=== PATIENT | male | born 1985 | race Caucasian/White ===

== ENCOUNTER → 2024-05-13 10:42 | Outpatient (BNVA) | payer OTHER, SELFPAY | PROVIDERS: PCP Family Medicine; Visit Provider Internal Medicine Cardiovascular Disease | DX: R00.2 Palpitations (principal); I49.1 Atrial premature depolarization; I49.3 Ventricular premature depolarization | CPT/HCPCS: 93246 ==

== ENCOUNTER 2024-08-23 13:53 | Outpatient (CLI) | payer OTHER, SELFPAY ==
--- NOTE | 2024-08-23 13:59 | US_ITS ---
WS: [id number] TESTICULAR ULTRASOUND HISTORY: LUMP ON RIGHT TESTICLE COMPARISON: None available. TECHNIQUE: Real-time and color Doppler imaging utilized to perform a testicular ultrasound. Right testicle: 4.3 cm x 2.6 cm x 2.2 cm. Normal size and echogenicity. No mass or torsion. Normal color Doppler is present throughout. Systolic and diastolic velocities are both present. Small simple hydrocele. Right epididymis: RIGHT spermatocele measures 1.3 x 1.4 x 1.1 cm. No increased vascularity within the epididymis. Left testicle: 4.5 cm x 2.6 cm x 2.1 cm. Normal size and echogenicity. No mass or torsion. Normal color Doppler is present throughout. Systolic and diastolic velocities are both present. Small simple hydrocele. Left epididymis: Small spermatocele in the epididymal head measures 0.7 x 1.0 x 0.6 cm. US/US scrotum [id number] IMPRESSION: 1. No testicular mass or torsion. 2. Bilateral epididymal head spermatoceles.
== END 2024-08-23 13:54 | disposition home or self-care (01) ==
PROVIDERS: PCP Family Medicine; Visit Provider Family Medicine
DX: Z01.89 Encounter for other specified special examinations (principal); N43.42 Spermatocele of epididymis, multiple; N43.3 Hydrocele, unspecified
CPT/HCPCS: 76870

== ENCOUNTER 2024-12-31 07:42 | Outpatient (CLI) | payer OTHER, SELFPAY ==
--- NOTE | 2024-12-31 07:46 | US_ITS ---
WS: [id number] RIGHT UPPER QUADRANT ULTRASOUND HISTORY: ELEVATED LIVER ENZYMES COMPARISON: None available. Liver: 15.8 cm in length. Poorly visualized liver. Deep liver towards the diaphragm is not imaged. Very coarse echotexture and heterogeneity. No mass identified. Portal Vein: Normal hepatopetal flow with monophasic waveform. Gallbladder: Normally distended gallbladder with no stones or wall thickening. CBD: 0.5 cm Pancreas: Completely obscured. Right kidney: 12.0 cm in length. Normal size and echogenicity. No hydronephrosis or mass. Aorta and IVC: Limited. No ascites. US/US abdomen limited 57642 IMPRESSION: 1. Study is compromised by patient's body habitus. 2. Negative gallbladder. 3. Normal size liver with advanced hepatic steatosis. The entire liver is not well visualized.
== END 2024-12-31 07:43 | disposition home or self-care (01) ==
LOC: RAD 07:43
PROVIDERS: PCP Family Medicine; Visit Provider Family Medicine
DX: K76.0 Fatty (change of) liver, not elsewhere classified (principal)
CPT/HCPCS: 76705

== ENCOUNTER 2025-02-03 20:00 | Outpatient (CLI) | payer OTHER, SELFPAY | END 2025-02-03 20:01 | disposition home or self-care (01) | LOC: SLEEP 02-04 00:24 | PROVIDERS: PCP Family Medicine; Visit Provider Internal Medicine Pulmonary Disease | DX: G47.33 Obstructive sleep apnea (adult) (pediatric) (principal) | CPT/HCPCS: 95810 ==

== ENCOUNTER 2025-04-13 17:06 | Inpatient (IN) | payer OTHER, SELFPAY ==
--- OUTSIDE RECORDS SUMMARY | 2025-03-04 09:05 | XMS_ITS ---
Author Organization [facility], [facility] Address [address] [place] [address] Care Team Providers Care Risk Control Analyst Name Role Phone Max Shelton Primary Care Provider Unavailab yanira SCOTT TOÑA Unavailable [phone] CHIDI FOSTER Unavailable [phone] REASON FOR VISIT 4-5 mo w/ reexamination - testicular cyst Encounters Encounter Location Date Provider Diagnosis [facility], [facility] [address] [place] [address] 03/04/2025 CHIDI FOSTER Testicular cyst N44. 2 ; Right testicular pain N50.811 and Anejaculation N53.19 Assessments Encounter Date Diagnosis (ICD Code) Assessment Notes Treatment Notes Treatment Clinical Notes Section Notes 03/04/2025 Testicular cyst (ICD-10 - N44.2) 03/04/2025 Right testicular pain (ICD-10 - N50.811) 03/04/2025 Anejaculation (ICD-10 - N53.19) Plan Of Treatment No Information Progress Notes * Omar CAIN WDOB:1985 (39 yo F)Acc No.[id number]:03/04/2025 Progress Notes Patient: Omar FLOWERS Provider: Suzanne Foster MD :1985 A ge:39 Y S ex:Female Date:03/04/2025 Address:[address] [place], [place] [id number] Pcp:Max Shelton Subjective: * Chief Complaints: * 1 . 4-5 mo w/ reexamination - testicular cyst. * HPI: M igrated HPI: 39 year old male, currently chews oral tobacco, that is here to establish care due to chronic testicular pain at times with a lump to R testicle . RAIZA was ordered and completed on 08/23/24 resulting with bilateral epididymal head spermatoceles. He reports has been aware of a cyst to the R since a young age and what sounds like varicocelectomy at age 25 at O[facility]. He is hard to gain history from exactly as he is a poor historian. He has a significant psychiatric history. He reports since was taking other schizophrenic medications, he has since been unable to fully ejaculate. Here today for 4m f/u with reexamination. * Medical History: Objective: * Vitals: Assessment: * Assessment: 1. T esticular cyst - N44.2 (Primary) 2 . R ight testicular pain - N50.811? 3. A nejaculation - N53.19 Plan: * Treatment: * Billing Information: * Visit Code: * Procedure Codes: * Electronic signature of MARY FOSTER MD on 04/14/2025 at 02:31 PM CDT Sign off status: Pending * Provider: Suzanne Foster MD Date: 0 03/04/2025 Generated for Roxann ballesteros/Valentin/Paulitting on: 1 02:31 PM CDT History and Physical Notes * HPI (History of Present Illness) Category Sub-Category Detail Notes Category Not es Migrated HPI 39 year old male, currently chews oral tobacco, that is here to establish care due to chronic testicular pain at times with a lump to R testicle . RAIZA was ordered and completed on 08/23/24 resulting with bilateral epididymal head spermatoceles. He reports has been aware of a cyst to the R since a young age and what sounds like varicocelectomy at age 25 at OSH. He is hard to gain history from exactly as he is a poor historian. He has a significant psychiatric history. He reports since was taking other schizophrenic medications, he has since been unable to fully ejaculate. Here today for 4m f/u with reexamination
--- OUTSIDE RECORDS SUMMARY | 2025-03-04 09:05 | XMS_ITS ---
Author Organization [facility], [facility] Address [address] [place] [address] Care Team Providers Care Street Commissioner Name Role Phone Max Shelton Primary Care Provider Unavailab yanira SCOTT TOÑA Unavailable [phone] CHIDI FOSTER Unavailable [phone] REASON FOR VISIT 4-5 mo w/ reexamination - testicular cyst Encounters Encounter Location Date Provider Diagnosis [facility], [facility] [address] [place] [address] 03/04/2025 CHIDI FOSTER Testicular cyst N44. 2 ; Right testicular pain N50.811 and Anejaculation N53.19 Assessments Encounter Date Diagnosis (ICD Code) Assessment Notes Treatment Notes Treatment Clinical Notes Section Notes 03/04/2025 Testicular cyst (ICD-10 - N44.2) 03/04/2025 Right testicular pain (ICD-10 - N50.811) 03/04/2025 Anejaculation (ICD-10 - N53.19) Plan Of Treatment No Information Progress Notes * Omar CAIN WDOB:1985 (39 yo F)Acc No.[id number]:03/04/2025 Progress Notes Patient: Omar FLOWERS Provider: Suzanne Foster MD :1985 A ge:39 Y S ex:Female Date:03/04/2025 Address:[address] [place], [place] [phone] Pcp:Max Shelton Subjective: * Chief Complaints: * [...] Electronic signature of MARY FOSTER MD on 04/13/2025 at 05:20 PM CDT Sign off status: Pending * Provider: Suzanne Foster MD Date: 0 03/04/2025 Generated for Roxann ballesteros/Valentin/Paulitting on: 1 05:20 PM CDT History and Physical Notes * [...]
[2025-04-13 17:08] VITALS: BP 134/94; PULSE 106; TEMP 36.9; O2SAT 97; BMI 36.1
--- OUTSIDE RECORDS SUMMARY | 2025-04-13 17:21 | XMS_ITS | Patient Health Record ---
Author Organization [facility], [facility] Address [address] [place] [address] Care Team Providers Care Franchise Consultant Name Role Phone Max Shelton Primary Care Provider Unavailab yanira KEATINGTOÑA PASCAL Unavailable [phone] MICAH GAMBOA Unavailable [phone] Derrick Micah Unavailable [phone] Allergies No Known Allergies Results Component Value Reference Range Notes Urinalysis, Routine Reviewed date:10/03/2024 02:27:48 PM Interpretation: Performing Lab: Notes/Report: Urine-Color yellow Appearance clear Glucose - Bilirubin 1+ Ketones - Specific [place] 1.025 Occult Blood - pH 6.0 Urine Protein - Urobilinogen,Semi-Qn - Nitrite, Urine - WBC Esterase - Reason For Referral No Information Medications Medication SIG (Take, Route, Frequency, Duration) Notes Start Date End Date Status diphenhydrAMINE HCl 50 MG 1 capsule at b edtime as needed Orally Once a day Active Melatonin 3 MG 1 tablet at bedtime as needed Orally Once a day Active hydrOXYzine Pamoate 50 MG 1 capsule at b edtime as needed Orally three times a day Active Social History Tobacco Use: Social History Observation Description Date Details (start date - stop date) Former Smoker NA - NA Tobacco Control (Standard) Question Answer Notes Tobacco use: Former smoker How long has it been since you last smoked? 1-5 years AUDIT-C (Standard) Question Answer Notes Did you have a drink containing alcohol in the p ast year? No Points 0 Interpretation Negative Section Notes: former ETOH - ages 18 - 38 current oral tobacco since age 18 - 2 cans per week Problems Problem Type SNOMED Code ICD Code Onset Dates Problem Status W/U Status Risk Notes Problem Anejaculation ([id number]) Anejaculation (N53.19) Active confirmed Vital Signs Heart Rate 66 /min 10/03/2024 Height-cm 185.42 cm 10/03/2024 Blood pressure diastolic 89 mm Hg 10/03/2024 Weight-kg 122.47 kg 10/03/2024 Height 73 in 10/03/2024 Blood pressure systolic 117 mm Hg 10/03/2024 Weight 270 lbs 10/03/2024 BMI 35.62 kg/m2 10/03/2024 Encounters Encounter Location Date Provider Diagnosis [email or web address] [address] [place] [address] 10/03/2024 Micah Meza Testicular cyst N44. 2 ; Right testicular pain N50.811 and Anejaculation N53.19 [email or web address] [address] [place] [address] 09/18/2024 TOÑA SCOTT Assessments Encounter Date Diagnosis (ICD Code) Assessment Notes Treatment Notes Treatment Clinical Notes Section Notes 10/03/2024 Right testicular pain (ICD-10 - N50.811) I reviewed RAIZA images independently, as well as radiology report. In the exam room I discussed with the patient and shown imaging to the patient that there is consistent findings with bilateral spermatoceles that has been causing him intermittent pains. Exam is overal reassuring and discussed continuing monitoring for now.. I have recommended and discussed methods for symptomatic support including scrotal support, NSAIDs, and warm sitz baths. He recently stopped previously a shizophrenic medication, and would like to see if ejaculatory function returns in a few months since stopping. Patient will safely return care in 4-6 months for symptom reassessment and reexamination. If continues to be bothersome/inte rmittent testicular pains, he would like to discuss with MD on possible surgical options. For now, and through shared decision making we are in agreement with no further workup or intervention at this time with care plan, aside from what was mentioned. Patient has no other voiced concerns or questions. Patient satisfied with plan. 10/03/2024 Testicular cyst (ICD-10 - N44.2) I reviewed RAIZA images independently, as well as radiology report. In the exam room I discussed with the patient and shown imaging to the patient that there is consistent findings with bilateral spermatoceles that has been causing him intermittent pains. Exam is overal reassuring and discussed continuing monitoring for now.. I have recommended and discussed methods for symptomatic support including scrotal support, NSAIDs, and warm sitz baths. He recently stopped previously a shizophrenic medication, and would like to see if ejaculatory function returns in a few months since stopping. Patient will safely return care in 4-6 months for symptom reassessment and reexamination. If continues to be bothersome/inte rmittent testicular pains, he would like to discuss with MD on possible surgical options. For now, and through shared decision making we are in agreement with no further workup or intervention at this time with care plan, aside from what was mentioned. Patient has no other voiced concerns or questions. Patient satisfied with plan. 10/03/2024 Anejaculation (ICD-10 - N53.19) I reviewed RAIZA images independently, as well as radiology report. In the exam room I discussed with the patient and shown imaging to the patient that there is consistent findings with bilateral spermatoceles that has been causing him intermittent pains. Exam is overal reassuring and discussed continuing monitoring for now.. I have recommended and discussed methods for symptomatic support including scrotal support, NSAIDs, and warm sitz baths. He recently stopped previously a shizophrenic medication, and would like to see if ejaculatory function returns in a few months since stopping. Patient will safely return care in 4-6 months for symptom reassessment and reexamination. If continues to be bothersome/inte rmittent testicular pains, he would like to discuss with MD on possible surgical options. For now, and through shared decision making we are in agreement with no further workup or intervention at this time with care plan, aside from what was mentioned. Patient has no other voiced concerns or questions. Patient satisfied with plan. Plan Of Treatment No Information Insurance Providers Payer Name Payer Address Payer Phone Subscriber Number Group Number Insured Name Patient Relationship to Insured Coverage Start Date Coverage End Date [employer] [address] [place] [id number] Omar Cain Self - patient is the insured Medical (General) History Medical History History ICD Code anxiety erectile dysfunction testicular pain schizophrenia Surgical History Surgery Date(Month/Year) jaw surgery varicocele sx Hospitalization History Reason Date(Month/Year) surgeries schizophrenia ( off and on
[2025-04-13 17:37] LABS: Hematocrit 48.3 % (37-53); Hemoglobin 16.60 g/dL (11.27-16.99); Mean Corpuscular HGB Conc 34.4 g/dL (30-55); Mean Corpuscular Hemoglobin 30.1 pg (27-33); Mean Corpuscular Volume 87.7 fl (82-101); Nucleated Red Blood Cells % 0 %; Platelet Count 347 10^3/cmm (157-399); Red Blood Count 5.51 10^6/uL (3.85-5.65); White Blood Count 12.29 10^3/uL (3.29-11.43)
[2025-04-13 17:46] LABS: PCP Screen Urine Negative (Negative)
--- NOTE | 2025-04-13 17:50 | ED.C_ITS ---
Documented by User: [email or web address] Dimas 04/13/25 17:53 HPI - Psych 2 General: Chief Complaint: Psychiatric Symptoms Stated Complaint: 96 Time Seen by Provider: 04/13/25 17:07 Source: patient and other (Friend) Mode of arrival: ambulatory Limitations: no limitations History of Present Illness: Patient is a 39-year-old male who presents to the emergency department for mental health evaluation. He was dropped off by a friend. Initially spoke to the patient, who tells me he is unsure why he is here. He states that he has been seeing and talking to [facility] for the last few years, and this is not unusual for him. He states that he used to take psychiatric meds for schizophrenia, but has been off of them for some time. He also reports that he was medically discharged from the for mental purposes. He is unable to tell me where he currently lives, and overall does not provide much history. He does deny that he is having any suicidal ideations or homicidal ideations. I then spoke to patient's friend, who dropped him off. She tells me that the patient has been living with her brother for the last few years. She also notes that recently, her brother a few weeks ago and since then the patient has stopped taking his medications. She tells me that the patient did not take off his tuxedo for a couple of weeks, and has been witnessed talking to shashank. Today, the patient was supposed to move out of the house he had been staying with her brother and, and she went to pick him up and asking him where he was going to go, the patient reported to her that Yue Vaughn is going to pick me up tonight and take me to [place]. He then told her that if she is not there to pick him up that he is going to walk to [place] himself. She also confirms to me that prior to the of her brother, he had been acting himself with no hallucinations of any kind. She also denies that he had been demonstrating any suicidal or homicidal ideations. complaint: other (Hallucinations) Onset (ago): week(s) Duration: constant and getting worse History of same: Yes Context: not taking psychiatric medications and significant life stressor Associated symptoms: Reports auditory hallucinations and visual hallucinations; Deny homicidal ideation or suicidal ideation Related Data Allergies Allergy/AdvReac Type Severity Reaction Status Date / Time No Known Allergies Allergy Verified 04/13/25 17:16 Review of Systems 2 General: Reports: 10 or more systems reviewed and unremarkable except in HPI and below Const: Denies: fever(s), chills or fatigue Eyes: Denies: change in vision ENMT: Denies: throat pain, ear or mastoid pain or nasal discharge Card: Denies: chest pain, palpitations, swelling of feet/ankles or lightheadedness Resp: Denies: dyspnea, productive cough or wheezing GI: Denies: abdominal pain, nausea, vomiting, diarrhea or constipation : Denies: flank pain, difficulty urinating, dysuria or urinary frequency Musc: Denies: neck pain, back pain or joint pain Skin/Breast: Denies: rash Neuro: Denies: headache(s), numbness in extremities or weakness in extremities Psych: Reports: visual hallucinations and auditory hallucinations; Denies: suicidal ideation or homicidal ideation Physical Exam 2 Const: COMMON NORMALS: no acute distress, patient oriented x3 and no limitations GENERAL APPEARANCE: cooperative, comfortable and well developed ORIENTATION/CONSCIOUSNESS: Yes awake, Yes oriented to person, Yes oriented to place and Yes oriented to time HENMT: COMMON NORMALS: normocephalic, atraumatic and hearing grossly normal bilaterally HEAD & SCALP: normocephalic and atraumatic Eye: COMMON NORMALS: Equal, round and reactive pupils present, EOMs intact bilaterally and conjunctivae normal CONJUNCTIVA: Yes conjunctivae normal P UPIL: Yes Equal, round and reactive pupils present Neck/C-Spine: COMMON NORMALS: full ROM, supple and no JVD Resp: COMMON NORMALS: normal respiratory effort, No retractions, No use of accessory muscles and clear to auscultation bilaterally AUSCULTATION: clear to auscultation bilaterally Cardio: COMMON NORMALS: no JVD, regular rate, regular rhythm, No clicks present (Cardio), No murmurs present (Cardio) and No rub (Cardio) RATE: r egular rate RHYTHM: regular rhythm Extremity: COMMON NORMALS: normal to inspection, full ROM and capillary refill normal Neuro: COMMON NORMALS: patient oriented x3, moves all extremities, no focal motor deficits and no sensory deficits noted SENSORIUM/ORIENTATION: Yes oriented to person, Yes oriented to place and Yes oriented to time Psych: COMMON NORMALS: mental status grossly normal, Normal thought process present and speech normal APPEARANCE: Yes grossly normal ATTITUDE: Yes calm ACTIVITY/MOTOR BEHAVIOR: Yes appropriate eye contact SPEECH: Yes normal speech MOOD & AFFECT: Yes euthymic mood THOUGHT PROCESS: Normal thought process present THOUGHT CONTENT: No Suicidality present, No Homicidality present and Yes Hallucination(s) present auditory and visual Skin: COMMON NORMALS: no rashes or lesions noted GENERAL SKIN EXAM: no rashes or lesions noted Course 2 Vital Signs: Vital signs: Vital Signs Temperature 98.5 F 04/13/25 17:08 Pulse Rate 106 H 04/13/25 17:08 Blood Pressure 134/94 04/13/25 17:08 Pulse Oximetry 97 04/13/25 17:08 Oxygen Delivery Me thod Room Air 04/13/25 17:08 MDM - Psych Medical Decision Making Patient presents to the emergency department for mental health evaluation, dropped off by a friend. I gathered history from the patient and the friend, and deemed that the patient is demonstrating signs of acute psychosis, brought on by of someone close to the patient as well as him not taking his psychiatric medications. He is cleared medically, and I spoke to Dr. Harris, psychiatrist, who agrees to accept the patient to the neuropsychiatric unit. Currently there are no beds, he will be moved up upon discharges in the morning. Spoke to Dr. Cerrato about this patient who will put in admit orders. Lab Data 04/13/25 17:25 04/13/25 17:25 Laboratory Results WBC 12.29 10^3/uL (3.29-11.43) H 04/13/25 17: RBC 5.51 10^6/uL (3.85-5.65) 04/13/25 17: Hgb 16.60 g/dL (11.27-16.99) 04/13/25 17: Hct 48.3 % (37-53) 04/13/25 17: MCV 87.7 fl (82-101) 04/13/25 17: MCH 30.1 pg (27-33) 04/13/25 17: MCHC 34.4 g/dL (30-55) 04/13/25: RDW 12.1 % (12.1-15.1) 04/13/25 17:25 Plt Count 347 10^3/cmm (157-399) 04/13/25 17:25 MPV 9.8 fL (7.4-10.4) 04/13/25 17:25 Neut % (Auto) 69.9 % 04/13/25 17:25 Lymph % (Auto) 23.1 % 04/13/25 17:25 [place] % (Auto) 5.5 % 04/13/25 17:25 Eos % (Auto) 0.5 % 04/13/25 17:25 Baso % (Auto) 0.4 % 04/13/25 17:25 Neut # (Auto) 8.59 10^3/uL (1.8-7.7) H 04/13/25 17: Lymph # (Auto) 2.8 10^3/uL (0.8-4.8) 04/13/25 17:25 [place] # (Auto) 0.7 10^3/uL (0.2-0.9) 04/13/25 17:25 Eos # (Auto) 0.1 10^3/uL (0.0-0.8) 04/13/25 17:25 Baso # (Auto) 0.1 10^3/uL (0.0-0.1) 04/13/25 17: Nucleated RBC % (auto) 0 % 04/13/25: Nucleated RBCs # 0.0 /100WBC 04/13/25 17:25 Sodium 141 mmol/L (136-145) 04/13/25 17:25 Potassium 3.6 mmol/L (3.5-5.1) 04/13/25 17:25 Chloride 104 mmol/L (98-107) 04/13/25 17:25 Carbon Dioxide 22 mmol/L (22-29) 04/13/25 17:25 Anion Gap 18.6 (5-19) 04/13/25 17:25 BUN 6 mg/dL (6-20) 04/13/25 17:25 Creatinine 0.8 mg/dL (0.7-1.2) 04/13/25 17:25 GFR Calculation 107.6 mL/min (90-130) 04/13/25 17:25 Glucose 101 mg/dL (65-115) 04/13/25 17:25 Calculated Osmolality 290 mOsm/kg (285-295) 04/13/25 17:25 Calcium 9.3 mg/dL (8.5-10.5) 04/13/25 17:25 Total Bilirubin 0.5 mg/dL (0.15-1.2) 04/13/25 17:25 AST 33 U/L (0-40) 04/13/25 17:25 ALT 75 U/L (0-41) H 04/13/25 17:25 Alkaline Phosphatase 132 U/L (40-130) H 04/13/25 17:25 Total Protein 7.6 g/dL (6.6-8.7) 04/13/25 17:25 Albumin 4.6 g/dL (3.5-5.2) 04/13/25 17:25 Globulin 3.0 g/dL (1.3-4.6) 04/13/25 17:25 Salicylates < 0.3 mg/dL (3-10) L 04/13/25 17:25 Urine Opiates Screen Negative ng/mL (Negative) 04/13/25 17:31 Acetaminophen < 5.0 ug/mL (10-30) L 04/13/25 17:25 Ur Barbiturates Screen Negative ng/mL (Negative) 04/13/25 17:31 Ur Phencyclidine Scrn Negative ng/mL (Negative) 04/13/25 17:31 Ur Amphetamines Screen Negative ng/mL (Negative) 04/13/25 17:31 U Benzodiazepines Scrn Negative ng/mL (Negative) 04/13/25 17:31 Urine Cocaine Screen Negative ng/mL (Negative) 04/13/25 17:31 U Marijuana (THC) Screen Negative ng/mL (Negative) 04/13/25 17:31 Ethyl Alcohol < 10 mg/dL (0-10) 04/13/25 17:25 No radiology studies performed this visit Discharge Plan Discharge Patient Disposition: Admitted As Inpatient Clinical Impression: Acute psychosis Condition: Stable Coding Level of Care Code ED Chemical Equipment Repairer for Jaquelin Fwd Documented by User: Beto Cerrato DO 04/13/25 18:07 HPI - Psych 2 General: Chief Complaint: Psychiatric Symptoms Stated Complaint: 96 Time Seen by Provider: 04/13/25 17:07 Related Data Allergies Allergy/AdvReac Type Severity Reaction Status Date / Time No Known Allergies Allergy Verified 04/13/25 17:16 Course 2 Vital Signs: Vital signs: Vital Signs Temperature 98.5 F 04/13/25 17:08 Pulse Rate 106 H 04/13/25 17:08 Blood Pressure 134/94 04/13/25 17:08 Pulse Oximetry 97 04/13/25 17:08 Oxygen Delivery Me thod Room Air 04/13/25 17:08 MDM - Psych Medical Decision Making Patient presents to the emergency department for mental health evaluation, dropped off by a friend. I gathered history from the patient and the friend, and deemed that the patient is demonstrating signs of acute psychosis, brought on by of someone close to the patient as well as him not taking his psychiatric medications. He is cleared medically, and I spoke to Dr. Harris, psychiatrist, who agrees to accept the patient to the neuropsychiatric unit. Currently there are no beds, he will be moved up upon discharges in the morning. Spoke to Dr. Cerrato about this patient who will put in admit orders. Chart reviewed and patient discussed with midlevel. Agree with assessment and plan. Lab Data 04/13/25 17:25 04/13/25 17:25 Laboratory Results WBC 12.29 10^3/uL (3.29-11.43) H 04/13/25 17: RBC 5.51 10^6/uL (3.85-5.65) 04/13/25 17: Hgb 16.60 g/dL (11.27-16.99) 04/13/25 17: Hct 48.3 % (37-53) 04/13/25 17: MCV 87.7 fl (82-101) 04/13/25 17: MCH 30.1 pg (27-33) 04/13/25 17: MCHC 34.4 g/dL (30-55) 04/13/25: RDW 12.1 % (12.1-15.1) 04/13/25 17:25 Plt Count 347 10^3/cmm (157-399) 04/13/25 17:25 MPV 9.8 fL (7.4-10.4) 04/13/25 17:25 Neut % (Auto) 69.9 % 04/13/25 17:25 Lymph % (Auto) 23.1 % 04/13/25 17:25 [place] % (Auto) 5.5 % 04/13/25 17:25 Eos % (Auto) 0.5 % 04/13/25 17:25 Baso % (Auto) 0.4 % 04/13/25 17: Neut # (Auto) 8.59 10^3/uL (1.8-7.7) H 04/13/25: Lymph # (Auto) 2.8 10^3/uL (0.8-4.8) 04/13/25 17:25 [place] # (Auto) 0.7 10^3/uL (0.2-0.9) 04/13/25 17:25 Eos # (Auto) 0.1 10^3/uL (0.0-0.8) 04/13/25 17:25 Baso # (Auto) 0.1 10^3/uL (0.0-0.1) 04/13/25 17: Nucleated RBC % (auto) 0 % 04/13/25: Nucleated RBCs # 0.0 /100WBC 04/13/25 17:25 Sodium 141 mmol/L (136-145) 04/13/25 17:25 Potassium 3.6 mmol/L (3.5-5.1) 04/13/25 17:25 Chloride 104 mmol/L (98-107) 04/13/25 17:25 Carbon Dioxide 22 mmol/L (22-29) 04/13/25 17:25 Anion Gap 18.6 (5-19) 04/13/25 17:25 BUN 6 mg/dL (6-20) 04/13/25 17:25 Creatinine 0.8 mg/dL (0.7-1.2) 04/13/25 17:25 GFR Calculation 107.6 mL/min (90-130) 04/13/25 17:25 Glucose 101 mg/dL (65-115) 04/13/25 17:25 Calculated Osmolality 290 mOsm/kg (285-295) 04/13/25 17:25 Calcium 9.3 mg/dL (8.5-10.5) 04/13/25 17:25 Total Bilirubin 0.5 mg/dL (0.15-1.2) 04/13/25 17:25 AST 33 U/L (0-40) 04/13/25 17:25 ALT 75 U/L (0-41) H 04/13/25 17:25 Alkaline Phosphatase 132 U/L (40-130) H 04/13/25 17:25 Total Protein 7.6 g/dL (6.6-8.7) 04/13/25 17:25 Albumin 4.6 g/dL (3.5-5.2) 04/13/25 17:25 Globulin 3.0 g/dL (1.3-4.6) 04/13/25 17:25 Salicylates < 0.3 mg/dL (3-10) L 04/13/25 17:25 Urine Opiates Screen Negative ng/mL (Negative) 04/13/25 17:31 Acetaminophen < 5.0 ug/mL (10-30) L 04/13/25 17:25 Ur Barbiturates Screen Negative ng/mL (Negative) 04/13/25 17:31 Ur Phencyclidine Scrn Negative ng/mL (Negative) 04/13/25 17:31 Ur Amphetamines Screen Negative ng/mL (Negative) 04/13/25 17:31 U Benzodiazepines Scrn Negative ng/mL (Negative) 04/13/25 17:31 Urine Cocaine Screen Negative ng/mL (Negative) 04/13/25 17:31 U Marijuana (THC) Screen Negative ng/mL (Negative) 04/13/25 17:31 Ethyl Alcohol < 10 mg/dL (0-10) 04/13/25 17:25 Discharge Plan Discharge Patient Disposition: Admitted As Inpatient Clinical Impression: Acute psychosis Condition: Stable Coding Level of Care Code ED Chemical Equipment Repairer for Jaquelin Pagan
[2025-04-13 18:00] LABS: Alanine Aminotransferase 75 U/L (0-41); Albumin Level 4.6 g/dL (3.5-5.2); Alkaline Phosphatase 132 U/L (40-130); Anion Gap 18.6 (5-19); Aspartate Amino Transferase 33 U/L (0-40); Blood Urea Nitrogen 6 mg/dL (6-20); Calcium 9.3 mg/dL (8.5-10.5); Carbon Dioxide 22 mmol/L (22-29); Chloride 104 mmol/L (98-107); Creatinine Clr Calc Pharmacy 171.2329; Globulin 3.0 g/dL (1.3-4.6); Glucose 101 mg/dL (65-115); Osmolality Calculated 290 mOsm/kg (285-295); Potassium 3.6 mmol/L (3.5-5.1); Sodium 141 mmol/L (136-145); Total Protein 7.6 g/dL (6.6-8.7)
[2025-04-13 18:03] LABS: Acetaminophen < 5.0 ug/mL (10-30); Alcohol Level < 10 mg/dL (0-10); Salicylate < 0.3 mg/dL (3-10)
[2025-04-13 22:00] VITALS: BP 128/89; PULSE 93; O2SAT 97
[2025-04-14 05:29] VITALS: BP 120/77; PULSE 74; O2SAT 96
--- NOTE | 2025-04-14 07:33 | PC.NURSE ---
went in to speak/introduce self to the patient. patient was found lying in the bed with eyes open. Patient was pleasant and denies any needs at this time
[2025-04-14 14:10] VITALS: BP 130/89; PULSE 95; O2SAT 99
--- OUTSIDE RECORDS SUMMARY | 2025-04-14 14:32 | XMS_ITS | Patient Health Record ---
Author Organization [facility], [facility] Address [address] [place] [address] Care Team Providers Care Software Packager Name Role Phone Max Shelton Primary Care Provider Unavailab yanira KEATINGTOÑA PASCAL Unavailable [phone] MICAH GAMBOA Unavailable [phone] Derrick Micah Unavailable [phone] Allergies No Known Allergies Results Component Value Reference Range Notes Urinalysis, Routine Reviewed date:10/03/2024 02:27:48 PM Interpretation: Performing Lab: Notes/Report: Urine-Color yellow Appearance clear Glucose - Bilirubin 1+ Ketones - Specific [place] 1.025 Occult Blood - pH 6.0 Urine [...] Status W/U Status Risk Notes Problem Anejaculation ([id number]) Anejaculation (N53.19) Active confirmed Vital Signs Heart Rate 66 /min 10/03/2024 Blood pressure diastolic 89 mm Hg 10/03/2024 Height-cm 185.42 cm 10/03/2024 Weight-kg 122.47 kg 10/03/2024 Height 73 in 10/03/2024 Blood pressure systolic 117 mm Hg 10/03/2024 Weight 270 lbs 10/03/2024 BMI 35.62 kg/m2 10/03/2024 Encounters Encounter Location Date Provider Diagnosis [facility] [address] [place] [address] 10/03/2024 Micah Meza Testicular cyst 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 2 ; Right testicular pain N50.811 and Anejaculation N53.19 [facility] [employer] [address] [place] [address] 09/18/2024 TOÑA SCOTT Assessments Encounter Date Diagnosis [...] Coverage End Date [employer] [address] [place] [id number] Omar Cain Self - patient is the insured Medical (General) History Medical History History ICD Code anxiety erectile dysfunction testicular pain schizophrenia Surgical History Surgery Date(Month/Year) jaw surgery varicocele sx Hospitalization History Reason Date(Month/Year) surgeries schizophrenia ( off and on
[2025-04-14 14:39] VITALS: BP 144/100; PULSE 91; RESP 16; TEMP 37.6; O2SAT 98
[2025-04-14 19:39] VITALS: BP 122/84; PULSE 94; RESP 18; TEMP 37.1; O2SAT 98
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
[2025-04-15 06:00] VITALS: BP 118/80; PULSE 70; RESP 18; TEMP 37; O2SAT 96
[2025-04-15 13:54] VITALS: BP 114/78; PULSE 93; RESP 16; TEMP 36.9; O2SAT 98
[2025-04-15 20:13] VITALS: BP 125/89; PULSE 98; RESP 17; TEMP 36.9; O2SAT 100
[2025-04-16 06:00] VITALS: BP 131/82; PULSE 86; RESP 18; TEMP 37.1; O2SAT 99
[2025-04-16] MEDS: paliperidone ER 6 mg Tablet PO (09:12)
--- NOTE | 2025-04-16 13:07 | P.NPUPN_ITS ---
Subjective NPU 2 Subjective: Patient presented today reporting that things are going all right. He reports that there have been no problems with the medication at this point and he denied any side effects to the medication. He continued to have the same reports of what appeared to be very delusional framework per staff reports and direct conversation. Mental Status Exam 2 MSE Comments: This is an obese white male in hospital scrubs with limited grooming and eye contact. No abnormal movements except for psychomotor retardation. Mostly cooperative with exam in mild to moderate distress. Speech was slightly decreased rate and volume. Mood described as okay affect odd. Thought process linear. Thought content: Patient denied suicidal or homicidal ideation, there were no delusions reported but significant delusions were noted of grandiose, persecutory and paranoid quality, he did not appear to be attending to internal stimuli and denied auditory or visual hallucinations but thinks he described appear to be hallucinatory. Attention and concentration were intact and memory appeared unreliable but none were formally tested. He is alert and oriented times person and place. Insight, judgment and impulse control are impaired. Vitals/I&O/Wt Last Vital Signs Temp 98.7 F 04/16/25 06:00 Pulse 86 04/16/25 06:00 Resp 18 04/16/25 06:00 BP 131/82 04/16/25 06:00 Pulse Ox 99 04/16/25 06:00 O2 Del Method Room Air 04/16/25 06:00 Data NPU 04/13/25 17:25 04/13/25 17:25 A&P Assessment and plan 1. Acute psychosis: 2. History of schizophrenia: Plan: This is a 39-year-old white male with a long history of mental health challenges and psychosocial issues like homelessness who presents after the of a close supporter and the medical incapacitation of another which left him living in the home alone of the person who is and now is again homeless in his life as the home has been sold. Patient has not been on medication and is somewhat resistant to the belief that he has any mental illness. There has been previous treatment and a long history of psychosis. 1. Offering Invega 6 mg p.o. daily. Plan to initiate long-acting injectable. 2. Continue every 15 minute checks for safety. 3. Encourage individual, group and milieu therapy. 4. Obtain collateral information. 5. Observe against the backdrop of the 96-hour hold. PDMP PDMP Reviewed: Not Reviewed Involuntary Hold Information 2 Hold Status: Date/Time Hold Expires: voluntary Attestations NPU 2 Medical Necessity Statement*: Inpatient hospitalization is medically necessary and the clinically appropriate intervention at this time. We will monitor/initiate medications and make changes as indicated. Likely length of stay 7-10 days. Coding Level of Care Code Acute Code for Chg Fwd Diagnoses Acute psychosis F23 History of schizophrenia Z86.59
[2025-04-16 14:00] VITALS: BP 129/88; PULSE 91; RESP 14; TEMP 36.6; O2SAT 97
[2025-04-16 19:22] VITALS: BP 141/85; PULSE 83; RESP 18; TEMP 36.4; O2SAT 98
[2025-04-17 06:00] VITALS: BP 128/80; PULSE 92; RESP 18; TEMP 36.6; O2SAT 98
[2025-04-17] MEDS: paliperidone ER 6 mg Tablet PO (08:24)
--- NOTE | 2025-04-17 13:54 | P.NPUPN_ITS ---
Subjective NPU 2 Subjective: Patient presented today reporting that things are fine. Staff report him being isolative and this is identified in direct observation. He continued to be very delusional per staff reports and direct conversation. He denied any side effects to the medication. Mental Status Exam 2 MSE Comments: This is an obese white male in hospital scrubs with limited grooming and eye contact. No abnormal movements except for psychomotor retardation. Mostly cooperative with exam in mild to moderate distress. Speech was slightly decreased rate and volume. Mood described as okay affect odd. Thought process linear. Thought content: Patient denied suicidal or homicidal ideation, there were no delusions reported but significant delusions were noted of grandiose, persecutory and paranoid quality, he did not appear to be attending to internal stimuli and denied auditory or visual hallucinations but thinks he described appear to be hallucinatory. Attention and concentration were intact and memory appeared unreliable but none were formally tested. He is alert and oriented times person and place. Insight, judgment and impulse control are impaired. Vitals/I&O/Wt Last Vital Signs Temp 97.8 F 04/17/25 06:00 Pulse 92 04/17/25 06:00 Resp 18 04/17/25 06:00 BP 128/80 04/17/25 06:00 Pulse Ox 98 04/17/25 06:00 O2 Del Method Room Air 04/17/25 06:00 Data NPU 04/13/25 17:25 04/13/25 17:25 A&P Assessment and plan 1. Acute psychosis: 2. History of schizophrenia: Plan: This is a 39-year-old white male with a long history of mental health challenges and psychosocial issues like homelessness who presents after the of a close supporter and the medical incapacitation of another which left him living in the home alone of the person who is and now is again homeless in his life as the home has been sold. Patient has not been on medication and is somewhat resistant to the belief that he has any mental illness. There has been previous treatment and a long history of psychosis. 1. Offering Invega 6 mg p.o. daily. Plan to initiate long-acting injectable. 2. Continue every 15 minute checks for safety. 3. Encourage individual, group and milieu therapy. 4. Obtain collateral information. 5. Observe against the backdrop of the 96-hour hold. PDMP PDMP Reviewed: Not Reviewed Involuntary Hold Information 2 Hold Status: Date/Time Hold Expires: voluntary Attestations NPU 2 Medical Necessity Statement*: Inpatient hospitalization is medically necessary and the clinically appropriate intervention at this time. We will monitor/initiate medications and make changes as indicated. Likely length of stay 7-10 days. Coding Level of Care Code Acute Code for Chg Fwd Diagnoses Acute psychosis F23 History of schizophrenia Z86.59
[2025-04-17 14:00] VITALS: BP 125/81; PULSE 104; RESP 14; TEMP 36.8; O2SAT 96
[2025-04-17 20:18] VITALS: BP 133/88; PULSE 87; RESP 18; TEMP 37.1; O2SAT 98
[2025-04-18 06:00] VITALS: BP 127/88; PULSE 96; RESP 18; TEMP 36.6; O2SAT 97
[2025-04-18] MEDS: paliperidone ER 6 mg Tablet PO (07:51)
[2025-04-18 14:00] VITALS: BP 131/89; PULSE 123; RESP 16; TEMP 37.2; O2SAT 97
--- NOTE | 2025-04-18 15:11 | P.NPUPN_ITS ---
Subjective NPU 2 Subjective: Patient presented today reporting that he is doing fine. He was able to identify that the medication had no side effects and was not causing him a problem. He continued to discuss paranormal or supernatural phenomena talking about somehow being the reflection of the Archangel Omar or something of that matter. Mental Status Exam 2 MSE Comments: This is an obese white male in hospital scrubs with limited grooming and eye contact. No abnormal movements except for psychomotor retardation. Mostly cooperative with exam in mild to moderate distress. Speech was slightly decreased rate and volume. Mood described as okay affect odd. Thought process linear. Thought content: Patient denied suicidal or homicidal ideation, there were no delusions reported but significant delusions were noted of grandiose, persecutory and paranoid quality, he did not appear to be attending to internal stimuli and denied auditory or visual hallucinations but thinks he described appear to be hallucinatory. Attention and concentration were intact and memory appeared unreliable but none were formally tested. He is alert and oriented times person and place. Insight, judgment and impulse control are impaired. Vitals/I&O/Wt Last Vital Signs Temp 99 F 04/18/25 14:00 Pulse 123 H 04/18/25 14:00 Resp 16 04/18/25 14:00 BP 131/89 04/18/25 14:00 Pulse Ox 97 04/18/25 14:00 O2 Del Method Room Air 04/18/25 14:00 Data NPU 04/13/25 17:25 04/13/25 17:25 A&P Assessment and plan 1. Acute psychosis: 2. History of schizophrenia: Plan: This is a 39-year-old white male with a long history of mental health challenges and psychosocial issues like homelessness who presents after the of a close supporter and the medical incapacitation of another which left him living in the home alone of the person who is and now is again homeless in his life as the home has been sold. Patient has not been on medication and is somewhat resistant to the belief that he has any mental illness. There has been previous treatment and a long history of psychosis. 1. Offering Invega 6 mg p.o. daily. Plan to initiate long-acting injectable. Increase to 9 mg p.o. daily. May consider moving to nighttime. 2. Continue every 15 minute checks for safety. 3. Encourage individual, group and milieu therapy. 4. Obtain collateral information. 5. Observe against the backdrop of the 96-hour hold. PDMP PDMP Reviewed: Not Reviewed Involuntary Hold Information 2 Hold Status: Date/Time Hold Expires: voluntary Attestations NPU 2 Medical Necessity Statement*: Inpatient hospitalization is medically necessary and the clinically appropriate intervention at this time. We will monitor/initiate medications and make changes as indicated. Likely length of stay 7-10 days. Coding Level of Care Code Acute Code for Chg Fwd Diagnoses Acute psychosis F23 History of schizophrenia Z86.59
[2025-04-18 20:51] VITALS: BP 125/79; PULSE 104; RESP 18; TEMP 37.1; O2SAT 95
[2025-04-19 06:00] VITALS: BP 129/93; PULSE 72; RESP 18; TEMP 36.4; O2SAT 97
[2025-04-19] MEDS: paliperidone ER 6 mg Tablet PO (08:07)
--- NOTE | 2025-04-19 09:02 | P.NPUPN_ITS ---
Subjective NPU 2 Subjective: Patient presented today reporting that things are going okay. He continues to struggle with psychosis and delusions per staff reports with direct observation. However he is starting to be less isolative per staff reports and direct observation. He continued to be open to treatment without resistance. He denied any side effects to the medication. Mental Status Exam 2 MSE Comments: This is an obese white male in hospital scrubs with limited grooming and eye contact. No abnormal movements except for psychomotor retardation. Mostly cooperative with exam in mild to moderate distress. Speech was slightly decreased rate and volume. Mood described as okay affect odd. Thought process linear. Thought content: Patient denied suicidal or homicidal ideation, there were no delusions reported but significant delusions were noted of grandiose, persecutory and paranoid quality, he did not appear to be attending to internal stimuli and denied auditory or visual hallucinations but thinks he described appear to be hallucinatory. Attention and concentration were intact and memory appeared unreliable but none were formally tested. He is alert and oriented times person and place. Insight, judgment and impulse control are impaired. Vitals/I&O/Wt Last Vital Signs Temp 97.6 F 04/19/25 06:00 Pulse 72 04/19/25 06:00 Resp 18 04/19/25 06:00 BP 129/93 04/19/25 06:00 Pulse Ox 97 04/19/25 06:00 O2 Del Method Room Air 04/19/25 06:00 Data NPU 04/13/25 17:25 04/13/25 17:25 A&P Assessment and plan 1. Acute psychosis: 2. History of schizophrenia: Plan: This is a 39-year-old white male with a long history of mental health challenges and psychosocial issues like homelessness who presents after the of a close supporter and the medical incapacitation of another which left him living in the home alone of the person who is and now is again homeless in his life as the home has been sold. Patient has not been on medication and is somewhat resistant to the belief that he has any mental illness. There has been previous treatment and a long history of psychosis. 1. Initiated Invega 6 mg p.o. daily. Plan to initiate long-acting injectable. Increased to 9 mg p.o. daily. May consider moving to nighttime. 2. Continue every 15 minute checks for safety. 3. Encourage individual, group and milieu therapy. 4. Obtain collateral information. 5. Observe against the backdrop of the 96-hour hold. PDMP PDMP Reviewed: Not Reviewed Involuntary Hold Information 2 Hold Status: Date/Time Hold Expires: voluntary Attestations NPU 2 Medical Necessity Statement*: Inpatient hospitalization is medically necessary and the clinically appropriate intervention at this time. We will monitor/initiate medications and make changes as indicated. Likely length of stay 7-10 days. Coding Level of Care Code Acute Code for Chg Fwd Diagnoses Acute psychosis F23 History of schizophrenia Z86.59
[2025-04-19 14:00] VITALS: BP 132/88; PULSE 86; RESP 18; TEMP 36.8; O2SAT 97
[2025-04-19 21:33] VITALS: BP 135/94; PULSE 87; RESP 19; TEMP 36.6; O2SAT 98
[2025-04-19 21:39] VITALS: BMI 36.1
[2025-04-20 06:00] VITALS: BP 132/83; PULSE 98; RESP 17; TEMP 37; O2SAT 92
[2025-04-20] MEDS: paliperidone ER 9 mg Tablet PO (10:02)
--- NOTE | 2025-04-20 12:40 | W.PM.NPUPNS ---
Subjective NPU Subjective: 39-year-old male admitted with psychosis. The patient had reported that others here and outside of here were trying to put a hex on him. The patient had reported that his foster mother is a witch. He reported that he had previously been in the and had served in the [employer] for 10 years. He reports that he is currently thinking of [place] and described being a [place] of [place] . He had reported that he had a spiritual problem with others. He had reported having previously been hospitalized shortly after his 10-year stay at in the [employer]. He reports currently not being service-connected for any psychiatric disorder. The patient had reported that he was compliant with his medication regimen. Mental Status Exam MSE Comments: This is an obese white male in hospital scrubs with limited grooming and eye contact. No abnormal involuntary motor movements except for psychomotor retardation. He was cooperative with exam in mild to moderate distress. Speech was slightly decreased in rate and normal in volume. Mood described as allright. His affect was blunted. Thought process was linear and logical. Thought content: Patient denied suicidal or homicidal ideation. There were prominent delusions noted as he stated he was the dany of [place]. And denied auditory or visual hallucinations and but did appear to be responding to internal stimuli. Attention and concentration were intact and memory appeared unreliable but none were formally tested. He is alert and oriented times person, time and place. Insight, judgment are poor. His impulse control is limited. Vitals/I&O/Wt Last Vital Signs Temp 98.6 F 04/20/25 06:00 Pulse 98 04/20/25 06:00 Resp 17 04/20/25 06:00 BP 132/83 04/20/25 06:00 Pulse Ox 92 04/20/25 06:00 O2 Del Method Room Air 04/20/25 06:00 Weight last 48 hrs Weight 124.454 kg Data NPU 04/13/25 17:25 04/13/25 17:25 A&P Assessment and plan 1. Acute psychosis: 2. History of schizophrenia: Plan: This is a 39-year-old white male with a long history of mental health challenges and psychosocial issues like homelessness who presents after the of a close supporter and the medical incapacitation of another which left him living in the home alone of the person who is and now is again homeless in his life as the home has been sold. Patient has not been on medication and is somewhat resistant to the belief that he has any mental illness. There has been previous treatment and a long history of psychosis. 1. Continue Invega at 9 mg p.o. daily. 2. Continue every 15 minute checks for safety. 3. Encourage individual, group and milieu therapy. 4. Obtain collateral information. 5. Observe against the backdrop of the 96-hour hold. PDMP PDMP Reviewed: Not Reviewed Involuntary Hold Information Hold Status: Date/Time Hold Expires: voluntary Attestations NPU Medical Necessity Statement*: Inpatient hospitalization is medically necessary and the clinically appropriate intervention at this time. We will monitor/initiate medications and make changes as indicated. The patient's likely length of stay is 7-10 days. Coding Level of Care Code Acute Code for [facility] Fwd Diagnoses Acute psychosis F23 History of schizophrenia Z86.59
[2025-04-20 14:00] VITALS: BP 126/87; PULSE 82; RESP 16; TEMP 36.3; O2SAT 98
[2025-04-20 22:00] VITALS: BP 151/96; PULSE 95; RESP 18; TEMP 36.7; O2SAT 98
[2025-04-21 06:00] VITALS: BP 136/85; PULSE 86; RESP 18; TEMP 36.4; O2SAT 98
[2025-04-21] MEDS: paliperidone ER 9 mg Tablet PO (08:13)
--- NOTE | 2025-04-21 13:46 | P.NPUPN_ITS ---
Subjective NPU 2 Subjective: 39-year-old male admitted with psychosis with likely schizophrenia. The patient had reported that he was finally rid of his infection that had been placed upon him by others through the form of hex. He reported that he remained homeless at this time. He had reported multiple previous trials on medications but was unable to provide clear information regarding his trials on antipsychotics. The patient had reported that he was no longer feeling controlled but still reported that others were somehow trying to place him in a situation where his royalty would come into question. He had reported that he was currently a dany and any changes in his medication regimen would not be tolerated by royalty. Mental Status Exam 2 MSE Comments: This is an obese white male in hospital scrubs with limited grooming and eye contact. No abnormal involuntary motor movements except for psychomotor retardation. He was cooperative with exam in mild to moderate distress. Speech was slightly decreased in rate and normal in volume. Mood described as okay. His affect was blunted. Thought process was linear and logical. Thought content: Patient denied suicidal or homicidal ideation. There were prominent delusions noted as he stated he was the dany of [place]. He denied auditory or visual hallucinations and did appear to be responding to internal stimuli today. Attention and concentration were intact and memory appeared unreliable but none were formally tested. He is alert and oriented times person, time and place. Insight, judgment are poor. His impulse control is limited. Vitals/I&O/Wt Last Vital Signs Temp 97.6 F 04/21/25 06:00 Pulse 86 04/21/25 06:00 Resp 18 04/21/25 06:00 BP 136/85 04/21/25 06:00 Pulse Ox 98 04/21/25 06:00 O2 Del Method Room Air 04/21/25 06:00 Weight last 48 hrs Weight 124.454 kg Data NPU 04/13/25 17:25 04/13/25 17:25 A&P Assessment and plan 1. Acute psychosis: 2. History of schizophrenia: Plan: This is a 39-year-old white male with a long history of mental health challenges and psychosocial issues like homelessness who presents after the of a close supporter and the medical incapacitation of another which left him living in the home alone of the person who is and now is again homeless in his life as the home has been sold. Patient has not been on medication and is somewhat resistant to the belief that he has any mental illness. There has been previous treatment and a long history of psychosis. 1. Continue Invega at 9 mg p.o. daily. 2. Continue every 15 minute checks for safety. 3. Encourage individual, group and milieu therapy. 4. Obtain collateral information. 5. Patient here voluntarily and remains psychotic. PDMP PDMP Reviewed: Not Reviewed Involuntary Hold Information 2 Hold Status: Date/Time Hold Expires: voluntary Attestations NPU 2 Medical Necessity Statement*: Inpatient hospitalization is medically necessary and the clinically appropriate intervention at this time. We will monitor/initiate medications and make changes as indicated. The patient's likely length of stay is 5-7 days. Coding Level of Care Code Acute Code for [facility] Fwd Diagnoses Acute psychosis F23 History of schizophrenia Z86.59
[2025-04-21 13:56] VITALS: BP 117/79; PULSE 120; RESP 16; TEMP 36.8; O2SAT 98
[2025-04-21 20:00] VITALS: PULSE 112
[2025-04-21 20:37] VITALS: BP 113/65; PULSE 128; RESP 19; TEMP 37.2; O2SAT 96
--- NOTE | 2025-04-21 20:38 | PC.NURSE ---
pulse high, nurse aware
--- NOTE | 2025-04-21 20:41 | PC.NURSE ---
nurse notified, pulse now 112, taken manually
[2025-04-22 06:00] VITALS: BP 117/74; PULSE 104; RESP 18; TEMP 36.6; O2SAT 97
[2025-04-22] MEDS: paliperidone ER 9 mg Tablet PO (08:28)
[2025-04-22 13:29] VITALS: BP 127/80; PULSE 123; RESP 16; TEMP 37.1; O2SAT 98
--- NOTE | 2025-04-22 16:47 | P.NPUPN_ITS ---
Subjective NPU 2 Subjective: 39-year-old male admitted with psychosis with schizophrenia. Patient continued to endorse delusions. He continued to report that he was dany of a [place] in [place]. He had reported that he had been placed here because of a hex and reported that he had been cursed but had finally had the cursed removed from his neck. He had continued to report that he was secretly a member of the [place] family. Mental Status Exam 2 MSE Comments: This is an obese white male in hospital scrubs with limited grooming and eye contact. No abnormal involuntary motor movements except for psychomotor retardation. He was cooperative with exam in mild to moderate distress. Speech was slightly decreased in rate and normal in volume. Mood described as okay. His affect was blunted. Thought process was linear and logical. Thought content: Patient denied suicidal or homicidal ideation. There were prominent delusions noted as he stated he was the [place]. He denied auditory or visual hallucinations and did appear to be responding to internal stimuli today. Attention and concentration were intact and memory appeared unreliable but none were formally tested. He is alert and oriented times person, time and place. Insight, judgment are poor. His impulse control is limited. Vitals/I&O/Wt Last Vital Signs Temp 98.7 F 04/22/25 13:29 Pulse 123 H 04/22/25 13:29 Resp 16 04/22/25 13:29 BP 127/80 04/22/25 13:29 Pulse Ox 98 04/22/25 13:29 O2 Del Method Room Air 04/22/25 13:29 Data NPU 04/13/25 17:25 04/13/25 17:25 A&P Assessment and plan 1. Acute psychosis: 2. History of schizophrenia: Plan: This is a 39-year-old white male with a long history of mental health challenges and psychosocial issues like homelessness who presents after the of a close supporter and the medical incapacitation of another which left him living in the home alone of the person who is and now is again homeless in his life as the home has been sold. Patient has not been on medication and is somewhat resistant to the belief that he has any mental illness. There has been previous treatment and a long history of psychosis. 1. Continue Invega at 9 mg p.o. daily. 2. Continue every 15 minute checks for safety. 3. Encourage individual, group and milieu therapy. 4. Obtain collateral information. 5. Patient here voluntarily and remains psychotic but appears to be tolerating invega at this time. PDMP PDMP Reviewed: Not Reviewed Involuntary Hold Information 2 Hold Status: Date/Time Hold Expires: voluntary Attestations NPU 2 Medical Necessity Statement*: Inpatient hospitalization is medically necessary and the clinically appropriate intervention at this time. We will monitor/initiate medications and make changes as indicated. The patient's likely length of stay is 3-4 days. Coding Level of Care Code Acute Code for [facility] Fwd Diagnoses Acute psychosis F23 History of schizophrenia Z86.59
[2025-04-22 19:20] VITALS: BP 125/86; PULSE 108; RESP 17; TEMP 36.7; O2SAT 97
[2025-04-23 06:00] VITALS: BP 132/87; PULSE 98; RESP 18; TEMP 36.6; O2SAT 99
[2025-04-23] MEDS: paliperidone ER 9 mg Tablet PO (09:31)
[2025-04-23 14:00] VITALS: BP 135/90; PULSE 89; RESP 16; TEMP 37.2; O2SAT 97
--- NOTE | 2025-04-23 16:04 | P.NPUPN_ITS ---
Subjective NPU 2 Subjective: 39-year-old male admitted with psychosis with schizophrenia. Patient reported no significant problems from his medications. He had met with someone from the [facility] today regarding a place to live. He had stated that he continued to be hesitant about taking a long-term injection and stated that he did not have problems with sleep. He continued to endorse bizarre delusions regarding his royal heritage. He had continued to report that he had an infection that was somehow placed upon him through a curse but stated that that had been removed from his body recently. Mental Status Exam 2 MSE Comments: This is an obese white male in hospital scrubs with limited grooming and eye contact. No abnormal involuntary motor movements except for psychomotor retardation. He was cooperative with exam in mild to moderate distress. Speech was slightly decreased in rate and normal in volume. Mood described as allright. His affect was blunted. Thought process was linear and logical. Thought content: Patient denied suicidal or homicidal ideation. There were prominent delusions noted as he stated he was from a royal family. He denied auditory or visual hallucinations and did appear to be responding to internal stimuli today. Attention and concentration were intact and memory appeared unreliable but none were formally tested. He is alert and oriented times person, time and place. Insight, judgment are poor. His impulse control is limited. Vitals/I&O/Wt Last Vital Signs Temp 98.9 F 04/23/25 14:00 Pulse 89 04/23/25 14:00 Resp 16 04/23/25 14:00 BP 135/90 04/23/25 14:00 Pulse Ox 97 04/23/25 14:00 O2 Del Method Room Air 04/23/25 14:00 Data NPU 04/13/25 17:25 04/13/25 17:25 A&P Assessment and plan 1. Acute psychosis: 2. History of schizophrenia: Plan: This is a 39-year-old white male with a long history of mental health challenges and psychosocial issues like homelessness who presents after the of a close supporter and the medical incapacitation of another which left him living in the home alone of the person who is and now is again homeless in his life as the home has been sold. Patient has not been on medication and is somewhat resistant to the belief that he has any mental illness. There has been previous treatment and a long history of psychosis. 1. Continue Invega at 9 mg p.o. daily. 2. Continue every 15 minute checks for safety. 3. Encourage individual, group and milieu therapy. 4. Obtain collateral information. 5. Patient here voluntarily and remains psychotic but appears to be tolerating invega at this time. 6. [facility] placement at [facility]. Patient refusing monthly medications but concern about patient likely to discontinue antipsychotics on discharge. PDMP PDMP Reviewed: Not Reviewed Involuntary Hold Information 2 Hold Status: Date/Time Hold Expires: voluntary Attestations NPU 2 Medical Necessity Statement*: Inpatient hospitalization is medically necessary and the clinically appropriate intervention at this time. We will monitor/initiate medications and make changes as indicated. The patient's likely length of stay is 3-4 days. Coding Level of Care Code Acute Code for [facility] Fwd Diagnoses Acute psychosis F23 History of schizophrenia Z86.59
[2025-04-23 19:44] VITALS: BP 128/89; PULSE 124; RESP 20; TEMP 36.9; O2SAT 96
[2025-04-23 20:08] VITALS: PULSE 125
--- NOTE | 2025-04-23 20:09 | PC.NURSE ---
pt pulse pt pulse taken manually at this time
[2025-04-24 06:00] VITALS: BP 126/79; PULSE 96; RESP 18; TEMP 36.3; O2SAT 98
[2025-04-24] MEDS: paliperidone ER 9 mg Tablet PO (08:35)
[2025-04-24 14:00] VITALS: BP 125/85; PULSE 104; RESP 18; TEMP 36.9; O2SAT 98
--- NOTE | 2025-04-24 16:18 | W.PM.NPUPNS ---
Subjective NPU Subjective: 39-year-old male admitted with psychosis with schizophrenia. Patient reported that he was feeling better. He reported having a good visit with [facility] and reported that he could probably go there to live. He had reported no side effects from his medication regimen. He had continued to minimize having any problems whatsoever despite also reporting that he had difficulties with trusting others. He had reported that he had been incorrectly diagnosed with schizophrenia. He had reported that he continued to feel as if he had been cursed but stated that he had felt that he was no longer hexed Mental Status Exam MSE Comments: This is an obese white male in hospital scrubs with limited grooming and eye contact. No abnormal involuntary motor movements except for psychomotor retardation. He was cooperative with exam in mild to moderate distress. Speech was slightly decreased in rate and normal in volume. Mood described as okay. His affect was blunted. Thought process was linear and logical. Thought content: Patient denied suicidal or homicidal ideation. There were prominent delusions noted as he stated he was from a royal family. Some continued ideas of reference. He denied auditory or visual hallucinations and did appear to be responding to internal stimuli today. Attention and concentration were intact and memory appeared unreliable but none were formally tested. He is alert and oriented times person, time and place. Insight and judgment are limited. His impulse control is limited. Vitals/I&O/Wt Last Vital Signs Temp 98.5 F 04/24/25 14:00 Pulse 104 H 04/24/25 14:00 Resp 18 04/24/25 14:00 BP 125/85 04/24/25 14:00 Pulse Ox 98 04/24/25 14:00 O2 Del Method Room Air 04/24/25 14:00 Data NPU 04/13/25 17:25 04/13/25 17:25 A&P Assessment and plan 1. Acute psychosis: 2. History of schizophrenia: Plan: This is a 39-year-old white male with a long history of mental health challenges and psychosocial issues like homelessness who presents after the of a close supporter and the medical incapacitation of another which left him living in the home alone of the person who is and now is again homeless in his life as the home has been sold. Patient has not been on medication and is somewhat resistant to the belief that he has any mental illness. There has been previous treatment and a long history of psychosis. 1. Continue Invega at 9 mg p.o. daily. 2. Continue every 15 minute checks for safety. 3. Encourage individual, group and milieu therapy. 4. Obtain collateral information. 5. Patient here voluntarily and remains psychotic but appears to be tolerating invega at this time. 6. Possible placement at [facility]. Patient refusing monthly medications but concern about patient likely as patient informed technical publications writer of his plan to discontinue antipsychotics on discharge. PDMP PDMP Reviewed: Not Reviewed Involuntary Hold Information Hold Status: Date/Time Hold Expires: voluntary Attestations NPU Medical Necessity Statement*: Inpatient hospitalization is medically necessary and the clinically appropriate intervention at this time. We will monitor/initiate medications and make changes as indicated. The patient's likely length of stay is 1-2 days. Coding Level of Care Code Acute Code for [facility] Fwd Diagnoses Acute psychosis F23 History of schizophrenia Z86.59
[2025-04-24 20:22] VITALS: BP 104/61; PULSE 89; RESP 18; TEMP 36.9; O2SAT 96
[2025-04-25 06:00] VITALS: BP 114/75; PULSE 89; RESP 18; TEMP 36.7; O2SAT 95
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
[2025-04-25 13:44] VITALS: BP 114/75; PULSE 89; RESP 18; TEMP 36.6; O2SAT 95
== END 2025-04-25 15:17 | disposition home or self-care (01) | DRG 885 ==
LOC: ER 18:05 → ER IP 20:37 → NP 04-14 14:07
PROVIDERS: Physician Assistant; Admitting Provider Psychiatry & Neurology Psychiatry; Emergency Provider Physician Assistant; PCP Family Medicine; Visit Provider Psychiatry & Neurology Psychiatry
DX: F20.9 Schizophrenia, unspecified (principal); Z59.00 Homelessness unspecified; Z63.4 Disappearance and death of family member; E66.9 Obesity, unspecified; Z68.36 Body mass index [BMI] 36.0-36.9, adult
CPT/HCPCS: 36415; 80053; 80306; 80307; 85025; 97150; 97165; 99285; J9999